=== PATIENT | female | born 1990 | race Caucasian/White ===

== ENCOUNTER 2018-03-21 10:01 | Inpatient (IN) | payer BC ==
[2018-03-21 11:03] LABS: Urine Appearance Clear; Urine Blood 2+ (Negative); Urine Color Straw; Urine Ketones Negative (Negative); Urine Protein Negative (Negative); Urine Red Blood Cell Trace(0-2/hpf) (Absent); Urine Specific Gravity 1.003 (1.010-1.030); Urine Urobilinogen Negative (Negative); Urine White Blood Cell Trace(0-5/hpf) (Absent)
[2018-03-21 11:05] LABS: Hematocrit 41 % (35-47); Hemoglobin 14.1 g/dl (12.0-16.0); Mean Corpuscular HGB Conc 34 g/dl (31-36); Mean Corpuscular Hemoglobin 32 pg (27-31); Mean Corpuscular Volume 93 fL (80-97); Red Blood Count 4.46 10^6/ul (4.00-5.40); Red Cell Distribution Width 13 % (10.5-15); White Blood Count 16.3 10^3/ul (3.5-10.8)
[2018-03-21 11:10] LABS: INR 0.82 (0.77-1.02)
[2018-03-21 11:25] LABS: Schistocytes ABSENT
[2018-03-21 11:29] LABS: ABS Basophils 0.1 10^3/ul (0-0.2); ABS Eosinophils 0.1 10^3/ul (0-0.6); ABS Lymphocytes 2.5 10^3/ul (1.0-4.8); ABS Monocytes 1.2 10^3/ul (0-0.8); ABS Neutrophils 12.3 10^3/ul (1.5-7.7); ABS Nucleated RBC 0.1 10^3/ul; Eosinophil % 0.8 % (0-6); Lymphocyte % 15.4 % (25-47); Mean Platelet Volume 9.9 um3 (7.4-10.4); Nucleated Red Blood Cells % 0.4; Platelet Count 64 10^3/ul (150-450); Platelet Count 65 10^3/ul (150-450)
[2018-03-21 11:42] LABS: EGFR Non-African American 112.5 (>60); Uric Acid 7.1 mg/dL (2.3-6.6)
[2018-03-21] MEDS ORDERED: Magnesium Sulf 4 GM/100 ML IV* 4,000 MG/100 ML BAG IVPB ONE ×2 (12:28→12:32)
[2018-03-21] MEDS ORDERED: ceFOXitin 2 GM IVPREMIX* 2 GM/50 ML BAG IVPB ONE (12:38)
[2018-03-21] MEDS ORDERED: Sodium Citrate/Citric Acid* 15 ML UDC PO ONE (12:40)
[2018-03-21] MEDS ORDERED: Metoclopramide IV* 5 MG/ML 2 ML VIAL ONE (12:41)
[2018-03-21] MEDS ORDERED: Sodium Citrate/Citric Acid* 15 ML UDC ONE ×2 (12:42→13:06)
[2018-03-21] MEDS ORDERED: Midazolam* 1 MG/ML 5 ML VIAL (5 MG) ONE (12:45)
[2018-03-21] MEDS ORDERED: Lidocaine 2% PF * 5 ML VIAL ONE (12:45)
[2018-03-21] MEDS ORDERED: Propofol* 10 MG/ML 20 ML BTL IV PUSH ONE (12:45)
[2018-03-21] MEDS ORDERED: fentaNYL* 50 MCG/ML 5 ML VIAL (250 MCG VIAL) ONE (12:45)
[2018-03-21] MEDS ORDERED: Succinylcholine* 20 MG/ML 10 ML VIAL ONE (12:45)
[2018-03-21] MEDS ORDERED: Esmolol* 10 MG/ML 10 ML (100 mg) ONE (12:47)
[2018-03-21] MEDS ORDERED: Magnesium Sulfate OB PREMIX* 40 GM/1,000 ML BAG IVPB SCH ×2 (13:00→15:00)
[2018-03-21] MEDS ORDERED: Metoclopramide IV* 5 MG/ML 2 ML VIAL IV SCH (13:00)
--- NOTE | 2018-03-21 13:09 | HP ---
General Information - Reason for Visit hypertension in office - General Information Maternal Age: 27 Grav: 1 Para: 0 SAB: 0 IEA: 0 Estimated Due Date: 05/15/18 Determined By: Early Ultrasound Maternal Blood Type and Rh: O Positive - Results this Serology/RPR Result: Non-Reactive Rubella Result: Immune HBsAg Result: Negative HIV Result: Negative Review of Systems Constitutional: Comfortable CV Complaint: No Respiratory: Shortness of Breath: No Gastrointestinal: No Nausea/Vomiting Genitourinary: No Bleeding, No Leaking Fluid Musculoskeletal: No Complaint Neurological: No Headache Movement: Normal Exam Allergies/Adverse Reactions: Allergies No Known Allergies Allergy (Verified 06/28/12 16:02) Lab Values - Entire Visit: Laboratory Tests 03/21/18 03/21/18 03/21/18 10:15 10:35 10:35 WBC 16.3 H RBC 4.46 Hgb 14.1 Hct 41 MCV 93 MCH 32 H MCHC 34 RDW 13 Plt Count 65 L MPV 9.9 Neut % (Auto) 75.9 Lymph % (Auto) 15.4 L Tillman % (Auto) 7.5 H Eos % (Auto) 0.8 Baso % (Auto) 0.4 Absolute Neuts (auto) 12.3 H Absolute Lymphs (auto) 2.5 Absolute Monos (auto) 1.2 H Absolute Eos (auto) 0.1 Absolute Basos (auto) 0.1 Absolute Nucleated RBC 0.1 Nucleated RBC % 0.4 Schistocytes INR (Anticoag Therapy) APTT Fibrinogen D-Dimer, Quantitative Sodium 134 L Potassium TNP Chloride 105 Carbon Dioxide 21 L Anion Gap 8 BUN 10 Creatinine 0.63 Est GFR ( Amer) 136.2 Est GFR (Non-Af Amer) 112.5 BUN/Creatinine Ratio 15.9 Glucose 67 L Uric Acid 7.1 H Calcium 9.8 Total Bilirubin 0.90 AST TNP ALT 126 H Alkaline Phosphatase 206 H Total Protein 5.8 L Albumin 3.4 Globulin 2.4 Albumin/Globulin Ratio 1.4 Urine Color Straw Urine Appearance Clear Urine pH 7.0 Ur Specific [place] 1.003 L Urine Protein Negative Urine Ketones Negative Urine Blood 2+ A Urine Nitrate Negative Urine Bilirubin Negative Urine Urobilinogen Negative Ur Leukocyte Esterase Trace A Urine WBC (Auto) Trace(0-5/hpf) Urine RBC (Auto) Trace(0-2/hpf) Ur Squamous Epith Cells Present A Urine Bacteria 1+ A Urine Glucose Negative Blood Type Antibody Screen 03/21/18 03/21/18 10:35 10:35 WBC RBC Hgb Hct MCV MCH MCHC RDW Plt Count 64 L MPV Neut % (Auto) Lymph % (Auto) Tillman % (Auto) Eos % (Auto) Baso % (Auto) Absolute Neuts (auto) Absolute Lymphs (auto) Absolute Monos (auto) Absolute Eos (auto) Absolute Basos (auto) Absolute Nucleated RBC Nucleated RBC % Schistocytes Absent INR (Anticoag Therapy) 0.82 APTT 28.3 Fibrinogen 537.5 H D-Dimer, Quantitative > 1050 H Sodium Potassium Chloride Carbon Dioxide Anion Gap BUN Creatinine Est GFR ( Amer) Est GFR (Non-Af Amer) BUN/Creatinine Ratio Glucose Uric Acid Calcium Total Bilirubin AST ALT Alkaline Phosphatase Total Protein Albumin Globulin Albumin/Globulin Ratio Urine Color Urine Appearance Urine pH Ur Specific [place] Urine Protein Urine Ketones Urine Blood Urine Nitrate Urine Bilirubin Urine Urobilinogen Ur Leukocyte Esterase Urine WBC (Auto) Urine RBC (Auto) Ur Squamous Epith Cells Urine Bacteria Urine Glucose Blood Type O Positive Antibody Screen Negative - Measurements Height: 5 ft 2 in Weight: 130 lb Weight in lbs: 130.882995 Body Mass Index (BMI): 23.8 Pre- Weight: 103 lb Weight Gained This : 27 lbs and 0 ozs - Exam Breast: Breast Exam Deferred CVA: No CVA Tenderness Extremities: Edema - +3 Heart: Normal Rhythm/Heart Sounds HEENT: No Significant Findings Lungs: Clear Bilaterally Reflexes: DTR 2+ Targeted Exam Findings See L&D Outpatient Visit Provider Note for Findings: N/A EFM Findings - External Monitor Findings External Monitor Findings: Accelerations Present, Variability Moderate Contractions: None Assessment/Plan - Assessment HELLP at 32 weeks . platelets 64,000 recommend section heath d/w risks benefits / alternatives/ indications/ questions answered explained HELLP. - Obstetrical Risk Factors Obstetrical Risk Factors: GBS Unknown - Plan Plan: Mag Sulfate, C/S Delivery
[2018-03-21] MEDS ORDERED: ceFOXitin 2 GM IVPREMIX* 2 GM/50 ML BAG ONE (13:10)
[2018-03-21] MEDS ORDERED: Dexamethasone IV* 4 MG/ML 1 ML (4 MG) ONE (13:40)
[2018-03-21] MEDS ORDERED: Ondansetron INJ* 2 MG/ML VIAL ONE ×2 (13:40→20:56)
[2018-03-21] MEDS ORDERED: Phenylephrine IV* 40 MCG/ML 10 ML SYRINGE ONE (13:49)
[2018-03-21] MEDS ORDERED: EPHEDrine (Pressors)* 50 MG/ML VIAL ONE (13:59)
[2018-03-21] MEDS ORDERED: Oxytocin in LR* 20 UNITS/1,000 ML BAG IVPB ONE (14:10)
[2018-03-21] MEDS ORDERED: Ibuprofen TAB* 600 MG PO PRN (14:21)
[2018-03-21] MEDS ORDERED: Glycerin ADULT SUPP PR PRN (14:21)
[2018-03-21] MEDS ORDERED: Zolpidem TAB* 5 MG PO PRN (14:21)
[2018-03-21] MEDS ORDERED: Acetaminophen TAB* 325 MG PO PRN (14:21)
[2018-03-21] MEDS ORDERED: Dibucaine 1% 28.35 GM TUBE PR PRN (14:21)
[2018-03-21] MEDS ORDERED: Witch Hazel PAD* JAR TOPICAL PRN (14:21)
[2018-03-21] MEDS ORDERED: oxyCODONE/Acetamin 5/325 MG* TAB PO PRN (14:21)
[2018-03-21] MEDS ORDERED: Misoprostol TAB* 200 MCG PR ONE (14:25)
[2018-03-21] MEDS ORDERED: Naloxone* 0.4 MG/ML 1 ML VIAL IV PUSH PRN (14:32)
[2018-03-21] MEDS ORDERED: Labetalol IV* 5 MG/ML 20 ML VIAL ONE (14:33)
[2018-03-21] MEDS: Oxytocin in LR* 20 UNITS/1,000 ML BAG IVPB SCH (14:51)
[2018-03-21] MEDS ORDERED: HYDROmorphone PCA* 20 MG/20 ML PCA.SYRING PCA SCH ×2 (15:00→15:30)
[2018-03-21] MEDS ORDERED: Ondansetron INJ* 2 MG/ML VIAL IV PRN (20:54)
--- NOTE | 2018-03-21 21:44 | OP ---
AMENDED REPORT NOW INCLUDES DATE OF OPERATION - ESIGNED BEFORE ADJUSTMENT * DATE OF OPERATION: 03/21/18 - ROOM #113 DATE OF : [birth year] SURGEON: Cristobal Jorgensen MD ANESTHESIA: General with endotracheal tube. PRE-OP DIAGNOSIS: HELLP syndrome, 32 weeks. POST-OP DIAGNOSIS: HELLP syndrome, 32 weeks. OPERATIVE PROCEDURE: Low transverse section. FINDINGS: This is a 27-year-old who presented to the office with a blood pressure of 167/90s and was sent up to Labor and Delivery for further evaluation. Upon arrival here, her pressure again was elevated and her liver enzymes, platelet count were abnormal. Platelet at 64,000 and liver enzymes were elevated. There was evidence of hemolysis. She and I discussed the risks , benefits, alternatives, indications of delivery versus waiting and steroids as well as the risk of section, which I recommended to her. At the time of , she had a viable female, Apgars 6 and 8, weight was 1580 grams. Normal-appearing uterus, fallopian tubes, and ovaries. ESTIMATED BLOOD LOSS: 800 cc. COMPLICATIONS: None. DESCRIPTION OF PROCEDURE: The patient identified, procedure identified as low transverse section. The patient was taken to the operating room, prepped and draped in the usual fashion in the left lateral recumbent position. She was then put to sleep under general anesthesia and a Pfannenstiel incision was made in the abdomen and carried down to the fat, fascia, and peritoneum. A transverse incision was made in the lower uterine segment. The above infant was delivered through the incision with ease. The cord was doubly clamped and cut and the infant was handed to the awaiting senior oracle soa developer. Cord blood was obtained. Placenta delivered spontaneously. The uterus was wiped out with a wet lap sponge. The uterine incision was then closed using 0 Polysorb in a running fashion. A second layer was used to imbricate the first layer. Good hemostasis was achieved in the peritoneal cavity. The uterus was placed back into the abdomen and the peritoneum was then closed using 3-0 Polysorb in a running fashion. Good hemostasis was achieved in the subrectus layers. Copious irrigation was utilized and suctioned out and the fascia was closed using 0 Polysorb in running fashion. Meticulous hemostasis was achieved in the subcuticular tissue and the skin was closed with 4-0 Monocryl in a subcuticular fashion. All sponge and instrument counts were correct and the patient returned to the recovery room in stable condition. [id number]/[facility] #: [id number] MTDD
[2018-03-21] MEDS ORDERED: Lithium Carbonate TAB* 300 MG PO SCH (22:00)
[2018-03-21] MEDS: OXcarbazepine TAB(*) 300 MG PO SCH (22:58)
[2018-03-21] MEDS: Lithium Carbonate ER* 450 MG TAB.ER PO SCH (22:58)
[2018-03-22] MEDS ORDERED: Nalbuphine* 10 MG/ML 1 ML VIAL IV PRN (00:53)
[2018-03-22] MEDS ORDERED: Nalbuphine* 10 MG/ML 1 ML VIAL ONE (01:00)
[2018-03-22 07:17] LABS: Hematocrit 34 % (35-47); Hemoglobin 11.4 g/dl (12.0-16.0); Mean Corpuscular HGB Conc 34 g/dl (31-36); Mean Corpuscular Hemoglobin 32 pg (27-31); Mean Corpuscular Volume 94 fL (80-97); Mean Platelet Volume 10.3 um3 (7.4-10.4); Platelet Count 83 10^3/ul (150-450); Red Blood Count 3.57 10^6/ul (4.00-5.40); Red Cell Distribution Width 14 % (10.5-15); White Blood Count 25.8 10^3/ul (3.5-10.8)
[2018-03-22 08:10] LABS: ABS Basophils 0.1 10^3/ul (0-0.2); ABS Eosinophils 0.1 10^3/ul (0-0.6); ABS Lymphocytes 3.2 10^3/ul (1.0-4.8); ABS Monocytes 1.6 10^3/ul (0-0.8); ABS Neutrophils 20.9 10^3/ul (1.5-7.7); ABS Nucleated RBC 0 10^3/ul; Eosinophil % 0.3 % (0-6); Lymphocyte % 12.3 % (25-47); Nucleated Red Blood Cells % 0
[2018-03-22] MEDS ORDERED: Ferrous Gluconate TAB* 324 MG TAB PO SCH (09:00)
[2018-03-22] MEDS ORDERED: OXCARBAZEPINE 150 MG PO SCH (09:00)
[2018-03-22] MEDS: Oxytocin in LR* 20 UNITS/1,000 ML BAG IVPB SCH (09:09)
[2018-03-22] MEDS: Docusate CAP* 100 MG PO SCH ×3 (09:09→20:47)
[2018-03-22] MEDS: Simethicone TAB* 80 MG TAB.CHEW PO SCH ×3 (09:09→20:47)
[2018-03-22] MEDS: Lithium Carbonate ER* 450 MG TAB.ER PO SCH ×2 (09:11→20:47)
[2018-03-22] MEDS: OXcarbazepine TAB(*) 300 MG PO SCH ×2 (09:13→20:47)
[2018-03-22] MEDS: oxyCODONE/Acetamin 5/325 MG* TAB PO PRN ×2 (10:24→22:00)
[2018-03-22] MEDS ORDERED: Butalb/Acetamin/Caff TAB* 1 TAB PO ONE (14:55)
[2018-03-23] MEDS: oxyCODONE/Acetamin 5/325 MG* TAB PO PRN ×4 (05:21→18:11)
[2018-03-23 07:03] LABS: Hematocrit 27 % (35-47); Hemoglobin 9.1 g/dl (12.0-16.0); Mean Corpuscular HGB Conc 34 g/dl (31-36); Mean Corpuscular Hemoglobin 31 pg (27-31); Mean Corpuscular Volume 93 fL (80-97); Mean Platelet Volume 9.7 um3 (7.4-10.4); Platelet Count 103 10^3/ul (150-450); Red Blood Count 2.93 10^6/ul (4.00-5.40); Red Cell Distribution Width 14 % (10.5-15); White Blood Count 18.2 10^3/ul (3.5-10.8)
[2018-03-23 07:32] LABS: EGFR Non-African American 114.6 (>60)
[2018-03-23] MEDS: Docusate CAP* 100 MG PO SCH ×4 (08:50→20:55)
[2018-03-23] MEDS: Simethicone TAB* 80 MG TAB.CHEW PO SCH ×5 (08:50→20:55)
[2018-03-23] MEDS: OXcarbazepine TAB(*) 300 MG PO SCH ×2 (08:51→20:56)
[2018-03-23] MEDS: Lithium Carbonate ER* 450 MG TAB.ER PO SCH ×2 (08:51→20:55)
[2018-03-23] MEDS ORDERED: diPHENhydraMINE PO* 25 MG ONE (18:33)
[2018-03-23] MEDS ORDERED: diPHENhydraMINE PO* 25 MG PO PRN (18:54)
[2018-03-23] MEDS ORDERED: Ferrous Gluconate TAB* 324 MG TAB ONE (20:50)
[2018-03-24] MEDS: oxyCODONE/Acetamin 5/325 MG* TAB PO PRN (04:14)
[2018-03-24 08:28] VITALS: BP 143/87
[2018-03-24] MEDS: Lithium Carbonate ER* 450 MG TAB.ER PO SCH (09:14)
[2018-03-24] MEDS: Simethicone TAB* 80 MG TAB.CHEW PO SCH (09:15)
[2018-03-24] MEDS: OXcarbazepine TAB(*) 300 MG PO SCH (09:16)
== END 2018-03-24 13:22 | disposition home or self-care (01) | DRG 540 ==
LOC: MCHOBOUT 10:01 → MCHOB 12:27
PROVIDERS: ADMIT Obstetrics & Gynecology; ATTEND Obstetrics & Gynecology
PROC: 4A1HXCZ Monitoring of Products of Conception, Cardiac Rate, External Approach (ICD-10-PCS; 2018-03-21)
PROC: 10D00Z1 Extraction of Products of Conception, Low, Open Approach (ICD-10-PCS; principal; 2018-03-21 13:20)
DX: O14.24 HELLP syndrome, complicating childbirth (principal); O99.344 Other mental disorders complicating childbirth; O60.14X0 Preterm labor third trimester with preterm delivery third trimester, not applicable or unspecified; F31.9 Bipolar disorder, unspecified; Z3A.32 32 weeks gestation of pregnancy; Z37.0 Single live birth
CPT/HCPCS: 36415; 80053; 81003; 81015; 84550; 85025; 85027; 85049; 85362; 85384; 85610; 85730; 86850; 86900; 86901; 87086; 88307; A9270-GY; J0330; J0694; J1100; J1170; J2250; J2300; J2405; J2704; J2765; J3010; J3475